=== PATIENT | female | born 1985 | race African-American/Black ===

== ENCOUNTER 2017-09-21 12:44 | Inpatient (IN) ==
[2017-09-21] MEDS ORDERED: ONDANSETRON 4 MG/2 ML VIAL IV PRN ×2 (13:41→17:17)
[2017-09-21] MEDS ORDERED: BUTORPHANOL 2 MG/ML VIAL IV PRN (13:41)
[2017-09-21] MEDS ORDERED: LACTATED RINGERS 1,000 ML IV SCH ×2 (14:00→16:30)
[2017-09-21] MEDS ORDERED: OXYTOCIN/LR 20 UNIT/1,000 ML BAG IV SCH (14:00)
[2017-09-21 14:01] LABS: Basophils % 0.2 % (0.0-0.8); Eosinophils # 0.3 10*3/uL (0.0-0.87); Hematocrit 32.8 VOL% (35.7-47.0); Hemoglobin 11.4 GM/DL (12.0-16.0); Immature Granulocytes % 0.3 %; Immature Granulocytes Absolute 0.03 #; Lymphocytes # 2.1 10*3/uL (1.4-4.0); Lymphocytes % 18.5 % (21.3-54.2); Mean Corpuscular HGB Conc 34.8 GM/DL (32-36); Mean Corpuscular Hemoglobin 30 PG (27-34); Mean Corpuscular Volume 86.8 FL (87-102); Mean Platelet Volume 11.1 FL (9.6-12.0); Monocytes # 0.5 10*3/uL (0.11-0.8); Monocytes % 4.6 % (1.7-12.7); Neutrophils # 8.2 10*3/uL (1.4-7.4); Neutrophils % 73.4 % (38.7-73.9); Platelet Count 221 T/CUMM (130-400); Red Blood Count 3.78 MC/CUMM (3.8-5.5); Red Cell Distribution Width 13.5 % (9.3-17.3); White Blood Count 11.2 T/CUMM (4-12)
[2017-09-21] MEDS ORDERED: PROMETHAZINE 25 MG/1 ML VIAL IM ONE (16:01)
[2017-09-21] MEDS ORDERED: diphenhydrAMINE 50 MG/1 ML VIAL IV PRN ×2 (16:01)
[2017-09-21] MEDS ORDERED: LACTATED RINGERS 1,000 ML IV ONE (16:01)
[2017-09-21] MEDS ORDERED: ePHEDrine 50 MG/ML AMP IV PRN ×2 (16:01)
[2017-09-21] MEDS ORDERED: FAMOTIDINE 20 MG/2 ML VIAL IV ONE (16:01)
[2017-09-21] MEDS ORDERED: hydrOXYzine HCL 25 MG/1 ML VIAL IM PRN (16:01)
[2017-09-21] MEDS ORDERED: CITRIC ACID/SODIUM CITRATE 30 ML UDCUP PO ONE (16:01)
[2017-09-21] MEDS ORDERED: CITRIC ACID/SODIUM CITRATE 30 ML UDCUP ONE (16:16)
[2017-09-21] MEDS ORDERED: fentaNYL 2 MCG/ROPIV 0.2% EPID 150 ML EPIDURAL SCH (16:30)
[2017-09-21] MEDS ORDERED: BENZOCAINE 20%/MENTHOL 0.5% SPRAY 56 GM CAN TOP PRN (17:17)
[2017-09-21] MEDS ORDERED: LANOLIN 50% CREAM 0.3 OZ TUBE TOP PRN (17:17)
[2017-09-21] MEDS ORDERED: MEASLES/MUMPS/RUBELLA VACCINE 0.5 ML VIAL SUBCUT ONE (17:17)
[2017-09-21] MEDS ORDERED: BISACODYL 10 MG SUPP RECTAL PRN (17:17)
[2017-09-21] MEDS ORDERED: RHO(D) IMMUNE GLOBULIN 300 MCG SYRINGE IM ONE (17:17)
[2017-09-21] MEDS ORDERED: DIPH/TET/ACEL PERT BOOSTER VACCINE 0.5 ML VIAL IM ONE (17:17)
[2017-09-21] MEDS ORDERED: ACETAMINOPHEN 325 MG TABLET PO PRN (17:17)
[2017-09-21] MEDS ORDERED: OXYTOCIN/LR 20 UNIT/1,000 ML BAG IV ONE (17:17)
[2017-09-21] MEDS ORDERED: WITCH HAZEL PADS 100/JAR TOP PRN (17:17)
[2017-09-21] MEDS ORDERED: oxyCODONE/ACETAMINOPHEN 5-325 MG TABLET PO PRN ×2 (17:17)
[2017-09-21] MEDS ORDERED: IBUPROFEN 800 MG TABLET PO PRN (17:17)
[2017-09-21] MEDS ORDERED: HYDROCORTISONE 2.5% RECTAL CREAM 30 GM TUBE TOP PRN (17:17)
[2017-09-21] MEDS: DOCUSATE SODIUM 100 MG CAPSULE PO SCH (21:54)
[2017-09-22 06:10] LABS: Basophils % 0.3 % (0.0-0.8); Eosinophils # 0.5 10*3/uL (0.0-0.87); Eosinophils % 3.6 % (0.00-10.9); Hematocrit 30.8 VOL% (35.7-47.0); Hemoglobin 10.3 GM/DL (12.0-16.0); Immature Granulocytes % 0.5 %; Immature Granulocytes Absolute 0.07 #; Lymphocytes # 3.1 10*3/uL (1.4-4.0); Lymphocytes % 23.6 % (21.3-54.2); Mean Corpuscular HGB Conc 33.4 GM/DL (32-36); Mean Corpuscular Hemoglobin 30 PG (27-34); Mean Platelet Volume 11.5 FL (9.6-12.0); Monocytes # 0.6 10*3/uL (0.11-0.8); Monocytes % 4.3 % (1.7-12.7); Neutrophils # 8.8 10*3/uL (1.4-7.4); Neutrophils % 67.7 % (38.7-73.9); Platelet Count 203 T/CUMM (130-400); Red Blood Count 3.46 MC/CUMM (3.8-5.5); Red Cell Distribution Width 13.2 % (9.3-17.3); White Blood Count 12.9 T/CUMM (4-12)
[2017-09-22] MEDS: DOCUSATE SODIUM 100 MG CAPSULE PO SCH ×2 (08:15→21:02)
[2017-09-22] MEDS: MULTIVITAMIN (PRENATAL) TABLET PO SCH (08:15)
[2017-09-23 07:28] VITALS: BP 138/85
[2017-09-23] MEDS ORDERED: INFLUENZA VIRUS VACCINE 0.5 ML SYRINGE IM ONE (09:00)
[2017-09-23] MEDS: MULTIVITAMIN (PRENATAL) TABLET PO SCH (09:27)
[2017-09-23] MEDS: DOCUSATE SODIUM 100 MG CAPSULE PO SCH (09:27)
== END 2017-09-23 13:25 | disposition home or self-care (01) | DRG 560 ==
LOC: N.LD 12:45 → N.LDOUT 13:20 → N.LD 13:24 → N.OB 21:05
PROVIDERS: ADMIT Specialist; ATTEND Specialist

== ENCOUNTER 2020-09-04 05:28 | Inpatient (IN) ==
[2020-09-04] MEDS ORDERED: BUTORPHANOL 2 MG/ML VIAL IV PRN (05:43)
[2020-09-04] MEDS ORDERED: ACETAMINOPHEN 325 MG TABLET PO PRN ×2 (05:43→12:45)
[2020-09-04] MEDS ORDERED: MEPERIDINE 50 MG/1 ML VIAL IM PRN (05:43)
[2020-09-04] MEDS ORDERED: LACTATED RINGERS 500 ML IV PRN (05:43)
[2020-09-04] MEDS ORDERED: ONDANSETRON 4 MG/2 ML VIAL IV PRN ×2 (05:43→12:45)
[2020-09-04] MEDS ORDERED: INFLUENZA VIRUS VACCINE 0.5 ML SYRINGE IM ONE (05:46)
[2020-09-04] MEDS ORDERED: OXYTOCIN/LR 20 UNIT/1,000 ML BAG IV SCH (06:00)
[2020-09-04 06:16] LABS: Basophils % 0.3 % (0.0-0.8); Eosinophils # 0.2 10*3/uL (0.0-0.87); Eosinophils % 2.1 % (0.00-10.9); Hematocrit 35.4 VOL% (35.7-47.0); Hemoglobin 12.4 GM/DL (12.0-16.0); Immature Granulocytes % 0.6 %; Immature Granulocytes Absolute 0.07 #; Lymphocytes # 2.6 10*3/uL (1.4-4.0); Lymphocytes % 24.1 % (21.3-54.2); Mean Corpuscular Volume 88.7 FL (87-102); Mean Platelet Volume 10.6 FL (9.6-12.0); Monocytes % 5.8 % (1.7-12.7); Neutrophils % 67.1 % (38.7-73.9); Platelet Count 220 T/CUMM (130-400); Red Blood Count 3.99 MC/CUMM (3.8-5.5); Red Cell Distribution Width 13.4 % (9.3-17.3); White Blood Count 10.8 T/CUMM (4-12)
[2020-09-04 06:48] LABS: Albumin 2.7 G/DL (3.4-5.0); Bilirubin,Total 0.4 MG/DL (0.2-1.0); Calcium 8.5 MG/DL (8.5-10.1); Osmolality,Calculated 275.4 MOS/KG (273-304); Potassium 3.7 MMOL/L (3.5-5.1); Total Protein 6.8 G/DL (6.4-8.3)
[2020-09-04] MEDS: LACTATED RINGERS 1,000 ML IV SCH ×2 (07:40→09:41)
[2020-09-04] MEDS ORDERED: PROMETHAZINE 25 MG/1 ML VIAL IM ONE (08:20)
[2020-09-04] MEDS ORDERED: hydrOXYzine HCL 25 MG/1 ML VIAL IM PRN (08:20)
[2020-09-04] MEDS ORDERED: FAMOTIDINE 20 MG/2 ML VIAL IV ONE (08:20)
[2020-09-04] MEDS ORDERED: ONDANSETRON 4 MG/2 ML VIAL IV ONE (08:20)
[2020-09-04] MEDS ORDERED: NALOXONE 0.4 MG/ML VIAL IV PRN (08:20)
[2020-09-04] MEDS ORDERED: LACTATED RINGERS 1,000 ML IV ONE (08:20)
[2020-09-04] MEDS ORDERED: diphenhydrAMINE 50 MG/1 ML VIAL IV PRN ×2 (08:20)
[2020-09-04] MEDS ORDERED: CITRIC ACID/SODIUM CITRATE 30 ML UDCUP PO ONE (08:20)
[2020-09-04] MEDS ORDERED: ePHEDrine 50 MG/ML VIAL IV PRN (08:20)
[2020-09-04] MEDS ORDERED: fentaNYL 2 MCG/ROPIV 0.2% EPID 100 ML EPIDURAL SCH (08:30)
[2020-09-04] MEDS ORDERED: CLINDAMYCIN INJ 900 MG in PREMIX 1 EACH IV SCH (09:00)
[2020-09-04] MEDS ORDERED: TRANEXAMIC ACID 1,000 MG/10 ML VIAL ONE (09:57)
[2020-09-04] MEDS ORDERED: METHYLERGONOVINE 0.2 MG/1 ML AMP ONE (09:57)
[2020-09-04] MEDS ORDERED: miSOPROStoL 200 MCG TABLET ONE (09:57)
[2020-09-04] MEDS ORDERED: OXYTOCIN/LR 20 UNIT/1,000 ML BAG IV ONE ×2 (09:57→12:45)
[2020-09-04] MEDS ORDERED: CARBOPROST TROMETHAMINE 250 MCG/ML AMP IM ONE (09:58)
[2020-09-04 10:18] LABS: Cord Arterial Blood HCO3 17.3 MMOL/L
[2020-09-04 10:19] LABS: Cord Venous Blood HCO3 18.1 MMOL/L; Cord Venous Blood PCO2 29.5 MMHG; Cord Venous Blood PO2 46.4 MMHG
[2020-09-04] MEDS ORDERED: WITCH HAZEL PADS 100/JAR TOP PRN (12:45)
[2020-09-04] MEDS ORDERED: DIPH/TET/ACEL PERT BOOSTER VACCINE 0.5 ML VIAL IM ONE (12:45)
[2020-09-04] MEDS ORDERED: oxyCODONE/ACETAMINOPHEN 5-325 MG TABLET PO PRN ×2 (12:45)
[2020-09-04] MEDS ORDERED: BISACODYL 10 MG SUPP RECTAL PRN (12:45)
[2020-09-04] MEDS ORDERED: RHO(D) IMMUNE GLOBULIN 300 MCG SYRINGE IM ONE (12:45)
[2020-09-04] MEDS ORDERED: HYDROCORTISONE 2.5% RECTAL CREAM 30 GM TUBE TOP PRN (12:45)
[2020-09-04] MEDS ORDERED: LANOLIN 50% CREAM 0.3 OZ TUBE TOP PRN (12:45)
[2020-09-04] MEDS ORDERED: BENZOCAINE 20%/MENTHOL 0.5% SPRAY 56 GM CAN TOP PRN (12:45)
[2020-09-04] MEDS ORDERED: MEASLES/MUMPS/RUBELLA VACCINE 0.5 ML VIAL SUBCUT ONE (12:45)
[2020-09-04] MEDS: IBUPROFEN 800 MG TABLET PO PRN (15:40)
[2020-09-04] MEDS: DOCUSATE SODIUM 100 MG CAPSULE PO SCH (22:27)
[2020-09-05 06:22] LABS: Basophils % 0.3 % (0.0-0.8); Eosinophils # 0.3 10*3/uL (0.0-0.87); Eosinophils % 2.5 % (0.00-10.9); Hematocrit 26.5 VOL% (35.7-47.0); Immature Granulocytes % 0.7 %; Immature Granulocytes Absolute 0.08 #; Lymphocytes # 2.6 10*3/uL (1.4-4.0); Lymphocytes % 23.4 % (21.3-54.2); Mean Corpuscular Volume 90.4 FL (87-102); Mean Platelet Volume 10.9 FL (9.6-12.0); Monocytes % 4.9 % (1.7-12.7); Neutrophils % 68.2 % (38.7-73.9); Red Cell Distribution Width 13.7 % (9.3-17.3)
[2020-09-05 06:24] LABS: Platelet Count 164 T/CUMM (130-400); Red Blood Count 2.93 MC/CUMM (3.8-5.5)
[2020-09-05] MEDS: FERROUS SULFATE 325 MG TABLET PO SCH (10:17)
[2020-09-05] MEDS: DOCUSATE SODIUM 100 MG CAPSULE PO SCH ×2 (10:17→21:22)
[2020-09-05] MEDS: IBUPROFEN 800 MG TABLET PO PRN (17:14)
[2020-09-06 08:20] VITALS: BP 122/78
[2020-09-06] MEDS: DOCUSATE SODIUM 100 MG CAPSULE PO SCH (09:42)
[2020-09-06] MEDS: FERROUS SULFATE 325 MG TABLET PO SCH (09:42)
[2020-09-06] MEDS ORDERED: DIPH/TET/ACEL PERT BOOSTER VACCINE 0.5 ML VIAL IM ONE (10:58)
== END 2020-09-06 11:05 | disposition home or self-care (01) | DRG 560 ==
LOC: N.LD 05:28 → N.OB 13:37
PROVIDERS: ADMIT Specialist; ATTEND Specialist